=== PATIENT | female | born 1955 | race Caucasian/White ===

== ENCOUNTER 2018-08-09 00:42 | Outpatient (CLI) | payer OTHER, SELFPAY ==
--- NOTE | 2018-08-09 14:00 | MERGE_ITS ---
*[facility]* *[facility]* [address] [place] [address] Date of study: 08/09/2018 Transthoracic Echocardiography M-mode, complete 2D, complete spectral Doppler, and color Doppler *STUDY CONCLUSIONS* Summary: 1. Left ventricle: The cavity size was normal. There was mild focal basal hypertrophy of the septum. Systolic function was normal. The estimated ejection fraction was 60-65%. Wall motion was normal; there were no regional wall motion abnormalities. 2. Mitral valve: Moderate diffuse thickening of the anterior leaflet and posterior leaflet, consistent with myxomatous proliferation. There was mild to moderate regurgitation. 3. Right ventricle: The cavity size was normal. Wall thickness was normal. Systolic function was normal. 4. Pulmonary arteries: Pulmonary systolic pressure was at the upper limits of normal. PA peak pressure: 33mm Hg (S). *PATIENT PRESENTATION* Height: 162.6cm ((64in) ) S/D Pressure: 126 / 76 Weight: 59.4kg ((130.7lb) ) BSA: 1.64m^2 Test start time: 02:06 PM. Test stop time: 03:00 PM. ORDERING Minda Ramirez REFERRING Minda Ramirez PERFORMING Unknown PERFORMING [facility] C[employer] SPREADER HELPER RT Gerson Valerio)(JENS)AIMEE *PROCEDURE DATA* Procedure information: The patient was identified by two identifiers. This study was interpreted by [facility]. Pertinent images and digital data are archived for permanent storage and are available for subsequent review. No prior study was available for comparison. Study status: Routine. Transthoracic echocardiography. M-mode, complete 2D, complete spectral Doppler, and color Doppler. A Transthoracic Echocardiogram was performed. Scanning was performed from the parasternal, apical, subcostal, and suprasternal notch acoustic windows. Images were obtained using an [id number] cardiac ultrasound machine. Image quality was adequate. Study completion: The patient tolerated the procedure well. History: PMH: Murmur. *CARDIAC ANATOMY* Left ventricle: The cavity size was normal. There was mild focal basal hypertrophy of the septum. Systolic function was normal. The estimated ejection fraction was 60-65%. Wall motion was normal; there were no regional wall motion abnormalities. Aortic valve: Trileaflet; mildly thickened leaflets. Mobility was not restricted. Doppler: Transvalvular velocity was within the normal range. There was no stenosis. There was no significant regurgitation. VTI ratio of LVOT to aortic valve: 0.7. Valve area (VTI): 2.1cm^2. Indexed valve area (VTI): 1.3cm^2/m^2. Peak velocity ratio of LVOT to aortic valve: 0.65. Valve area (Vmax): 1.9cm^2. Indexed valve area (Vmax): 1.2cm^2/m^2. Mean velocity ratio of LVOT to aortic valve: 0.69. Valve area (Vmean): 2cm^2. Indexed valve area (Vmean): 1.2cm^2/m^2. Mean gradient (S): 4.5mm Hg. Peak gradient (S): 7.8mm Hg. Aorta: Aortic root: The aortic root was normal in size. Ascending aorta: The ascending aorta was normal in size. Mitral valve: Moderate diffuse thickening of the anterior leaflet and posterior leaflet, consistent with myxomatous proliferation. Mobility was not restricted. Doppler: Transvalvular velocity was within the normal range. There was no evidence for stenosis. There was mild to moderate regurgitation. Valve area by pressure half-time: 4.1cm^2. Indexed valve area by pressure half-time: 2.5cm^2/m^2. Peak gradient (D): 4.4mm Hg. Left atrium: The atrium was normal in size. Right ventricle: The cavity size was normal. Wall thickness was normal. Systolic function was normal. Pulmonic valve: Poorly visualized. Doppler: Transvalvular velocity was within the normal range. There was no evidence for stenosis. There was no significant regurgitation. Peak gradient (S): 2.9mm Hg. Tricuspid valve: Mildly thickened leaflets. Doppler: Transvalvular velocity was within the normal range. There was no evidence for stenosis. There was trivial regurgitation. Pulmonary artery: Poorly visualized. Pulmonary systolic pressure was at the upper limits of normal. Right atrium: The atrium was normal in size. Pericardium: There was no pericardial effusion. Systemic veins: Inferior vena cava: Well visualized. The vessel was patent and normal in size. The respirophasic diameter changes were in the normal range (greater than or equal to 50%), consistent with normal central venous pressure. Baseline ECG: Normal sinus rhythm. Measurements Left ventricle Value Reference LV ID, ED, PLAX 4.1 cm 3.5 - 6.0 LV ID, ES, PLAX 2.6 cm 2.1 - 4.0 LV PW thickness, ED, PLAX 1.0 cm LV end-diastolic volume, 1-p A2C 62 ml LV ejection fraction, 1-p A2C 64 % LV end-diastolic volume, 1-p A4C 58 ml LV ejection fraction, 1-p A4C 62 % LV e', lateral 0.122 m/sec LV E/e', lateral 9 LV e', medial 0.121 m/sec LV E/e', medial 9 LV e', average 0.122 m/sec LV E/e', average 9 Ventricular septum Value Reference IVS thickness, ED, PLAX 0.9 cm LVOT Value Reference LVOT ID, A-P 1.9 cm LVOT area 3 cm^2 LVOT peak velocity, S 0.91 m/sec LVOT mean velocity, S 0.7 m/sec LVOT VTI, S 22.4 cm LVOT peak gradient, S 3.3 mm Hg LVOT mean gradient, S 2.1 mm Hg Stroke volume (SV), LVOT DP 67 ml Stroke index (SV/bsa), LVOT DP 41 ml/m^2 Aortic valve Value Reference Aortic valve peak velocity, S 1.4 m/sec Aortic valve mean velocity, S 1.02 m/sec Aortic valve VTI, S 32.0 cm Aortic mean gradient, S 4.5 mm Hg Aortic peak gradient, S 7.8 mm Hg VTI ratio, LVOT/AV 0.7 Aortic valve area, VTI 2.1 cm^2 Velocity ratio, peak, LVOT/AV 0.65 Aortic valve area, peak velocity 1.9 cm^2 Velocity ratio, mean, LVOT/AV 0.69 Aortic valve area, mean velocity 2 cm^2 Aortic valve area/bsa, mean velocity 1.2 cm^2/m^2 Aorta Value Reference Aortic root ID, ED 2.8 cm Ascending aorta ID, A-P, S 2.6 cm RVOT Value Reference RVOT VTI, S 17.1 cm Left atrium Value Reference LA ID, A-P, ES 2.6 cm LA ID/bsa, A-P 1.6 cm/m^2 <=2.2 LA area, ES, A4C 14.9 cm^2 8.8 - 23.4 LA area, ES, A2C 15 cm^2 LA volume/bsa, ES, 1-p A4C 25 ml/m^2 LA volume, ES, 2-p 36 ml LA volume/bsa, ES, 2-p 22 ml/m^2 LA/aortic root ratio 0.93 Mitral valve Value Reference Mitral E-wave peak velocity 1.05 m/sec Mitral A-wave peak velocity 0.57 m/sec Mitral deceleration time 187 ms 150 - 230 Mitral pressure half-time 54 ms Mitral peak gradient, D 4.4 mm Hg Mitral E/A ratio, peak 1.83 Mitral valve area, PHT, DP 4.1 cm^2 Pulmonary veins Value Reference Pulmonary vein peak velocity, S 0.66 m/sec Pulmonary vein peak velocity, D 0.68 m/sec Pulmonary vein velocity ratio, peak, 0.98 S/D Pulmonary vein A-wave reversal peak 0.38 m/sec velocity Pulmonary arteries Value Reference PA pressure, S, DP (H) 33 mm Hg <=30 Tricuspid valve Value Reference Tricuspid regurg peak velocity 2.6 m/sec Tricuspid peak RV-RA gradient 26.4 mm Hg Right atrium Value Reference RA area, ES, A4C 15.2 cm^2 8.3 - 19.5 Systemic veins Value Reference Estimated CVP 10 mm Hg Right ventricle Value Reference RV pressure, S, DP (H) 36 mm Hg <=30 Pulmonic valve Value Reference Pulmonic peak gradient, S 2.9 mm Hg Legend: (L) and (H) harrison values outside specified reference range. I have personally reviewed the images and have reviewed and edited the reported findings. Electronically signed by Ronnell Corbin 08/11/2018 12:23
== END 2018-08-09 01:02 ==
PROVIDERS: PCP Family Medicine; Visit Provider Family Medicine
DX: R01.1 Cardiac murmur, unspecified (principal); I34.0 Nonrheumatic mitral (valve) insufficiency
CPT/HCPCS: 93306

== ENCOUNTER 2019-01-16 10:48 | Emergency (ER) | payer OTHER, SELFPAY ==
[2019-01-16 10:54] VITALS: BP 165/84; PULSE 92; RESP 18; TEMP 37.2; O2SAT 98
--- NOTE | 2019-01-16 11:14 | W.ED.GENAD ---
Discharge Plan Disposition Patient Disposition: HOME Condition: Stable Discharge Details Chief Complaint: GenMedical Clinical Impression: Change in vision Primary Care Provider: Minda Ramirez ED Provider: Morgan Jones Discharge Instructions Additional Instructions: Please go immediately to Dr. Mejia's office, and have a friend drive you. They are waiting for you at their office. If you notice any worsening of your symptoms, or any new symptoms such as vomiting, diarrhea, fever, chills, shortness of breath, chest pain, numbness, weakness, or fainting , please return immediately to the emergency department for reevaluation. Please follow up with your primary care provider as soon as possible for reassessment and reevaluation. As always, it was a pleasure participating in your medical care today. Referrals: [facility] [OTHER] - Medical Decision Making This is a 63-year-old female who presents with acute blurry vision. She also complained of a very mild headache that occurred roughly 1-2 hours ago. At the time of arrival in the ED her symptoms had resolved. Her eye pain had improved, her headache is gone away, physical exam shows no clinical evidence of meningitis, she has no neurologic deficits, and a benign neurologic exam. [place] demonstrated a pressure of 23 on the right eye and 24 on the left. However visual acuity demonstrated 25 on the left, and 100 on the right. No other significant abnormalities on exam. With no neurologic deficits, no signs of nuchal rigidity do not think that there is an immediate indication for CT imaging of the head neuroimaging at this time, however I am concerned with her glaucoma and her sudden vision change in the right with the residual vision of 100 on the right eye. Patient's vital signs are otherwise stable and reassuring. I have recommended close follow-up with her primary care provider Dr. Shaw, but with her vision change in her worsening vision on the right I do feel that prompt follow-up with Dr. Mejia is indicated at this time. For prompt follow-up. We will contact his office. I spoke with Dr. Mejia is clinical colleague, they recommend that the patient come right over for evaluation. We will send the patient directly to his office. I have extensively reviewed the treatment plan and discharge instructions with the patient. I have addressed all patient concerns at this time. The patient was made aware of what symptoms to monitor for that would warrant a return to the emergency department. Discussed the plan with the patient, they demonstrate verbal understanding and agreement with our assessment and plan at this time. HPI General Date/Time Provider Initiated Documentation: 01/16/19 10:48. HPI Narrative: This is a 63-year-old female with a past medical history of borderline glaucoma, who presents today for evaluation of very mild headache and minimal right eye blurriness that occurred roughly 2 days ago. She does admit to mild fatigue over the last 2 days, but denies any fever, chills, cough, chest pain, neck pain, shortness of breath, nausea, vomiting, diarrhea. States that her symptoms today occurred while she was sitting and working at her desk at work. Symptoms were brief, and have resolved by the time she arrived here. She last saw Dr. Mejia 1 month ago for evaluation of her glaucoma and they were still holding off on meds at that time. Currently the patient states that her headache has resolved, vision changes there is resolved, and she has no other complaints. No other modifying factors at this. No recent surgeries. Related Data Allergies Allergy/AdvReac Type Severity Reaction Status Date / Time mushroom Allergy Intermediate heart Unverified 01/16/19 10:59 palpatations, nightmares venom-honey bee Allergy Intermediate swelling Unverified 01/16/19 10:59 Sulfa (Sulfonamide Allergy Unknown Unverified 01/16/19 10:59 Antibiotics) General Stated Complaint: GenMedical LAURIE: 3 Review of Systems Review of Systems All systems reviewed & are unremarkable except as noted in HPI and below PFSH Medical History Cardiac murmur (Acute) Change in multiple pigmented skin lesions (Acute) Primary osteoarthritis of left hip (Chronic) Malignant neoplasm of female breast (Chronic 05/28/07) Irritable colon (Chronic) Insomnia (Chronic) Idiopathic scoliosis (Chronic) Hypercholesterolemia (Chronic 02/17/13) History of tobacco use (Chronic) Diverticulosis (Chronic) Acute glomerulonephritis (Resolved) Atypical mole (Resolved 03/14/16) Surgical History S/P laparoscopic hysterectomy (Resolved) Biopsy of breast (~2006) Colonoscopy - IV Sedation (05/03/12) Hysterectomy, Laproscopic (~1989) Total replacement of hip Family History Mother Essential hypertension Father Essential hypertension Heart disease Hyperlipidemia Myocardial infarction Sister Alzheimer's disease Hyperlipidemia Stroke Brother Heart disease Sister MS (multiple sclerosis) Daughter No problems noted. Daughter No problems noted. 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 Eye: EOMI, PERRL, Peripheral vision intact. No nystagmus. Fundoscopic exam shows normal optic discs and normal vasculature. No external signs of preseptal cellulitis, no redness around the eye, no proptosis. No hyphema, no signs of trauma around the eye, no periorbital emphysema. Visual acuity as documented in chart. Both eyes was 25, right eye was 100, left eye was 25. 3.ENT: Atraumatic external nose and ears. Moist MM. Neck: Symmetric, trachea midline, No thyromegaly. Patient demonstrates good movement of cervical neck. There is no nuchal rigidity, no nuchal tenderness. Patient is able to flex the neck without any difficulty or significant pain. Negative Kernig's and Brudzinski sign. 4.CVS: +S1/S2, No murmurs or gallops. Peripheral pulses 2+ and equal in all extremities. Brisk capillary refill in all extremities. 5.RESP: Unlabored respiratory effort. Clear to auscultation bilaterally. No wheezes rales or rhonchi 6.GI: Soft, Nontender/Nondistended, No hepatosplenomegaly. No guarding or rebound. 7.MSK: Normocephalic/Atraumatic, Extremities w/o deformity or ttp No cyanosis or clubbing, Normal movement of all extremities 8.Skin: Warm, Dry. No rashes or lesions. 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 Sensation grossly intact, no focal neurologic deficits. All 6 cardinal planes of vision are fully intact. No evidence of rotatory or vertical nystagmus. The patient demonstrated a normal tanlhv-yohx-vjadth, good dexterity. There was no evidence of dysdiadochokinesia. Patient was able to ambulate without difficulty. There was no wide-based gait. Romberg, and kldo-jr-aqgi are both normal on testing. Sensation was intact bilaterally as well as muscle strength bilaterally for all extremities. Patient was able to verbalize butter cup with no slurring, or miss pronunciation. 10.Psych: (AAO) x3. Appropriate mood and affect Course Vital Signs Temperature 37.2 C 01/16/19 10:54 Pulse 92 H 01/16/19 10:54 Respiratory Rate 18 01/16/19 10:54 Blood Pressure 165/84 H 01/16/19 10:54 Pulse Oximetry 98 01/16/19 10:54 Temperature 37.2 C 01/16/19 10:54 Temperature Source Skin 01/16/19 10:54 Pulse 92 H 01/16/19 10:54 Respiratory Rate 18 01/16/19 10:54 Blood Pressure 165/84 H 01/16/19 10:54 Pulse Oximetry 98 01/16/19 10:54 Oxygen Delivery Method Room Air 01/16/19 10:54 Oxygen Flow Rate 0 01/16/19 10:54 Pain Level 0 01/16/19 10:54
--- NOTE | 2019-01-16 11:25 | ED.GENADUL_ITS ---
Discharge Plan Disposition Patient Disposition: HOME Condition: Stable Discharge Details Chief Complaint: GenMedical Clinical Impression: Change in vision Primary Care Provider: Minda Ramirez ED Provider: Morgan Jones Discharge Instructions Additional Instructions: Please go immediately to Dr. Mejia's office, and have a friend drive you. They are waiting for you at their office. If you notice any worsening of your symptoms, or any new symptoms such as vomiting, diarrhea, fever, chills, shortness of breath, chest pain, numbness, weakness, or fainting , please return immediately to the emergency department for reevaluation. Please follow up with your primary care provider as soon as possible for reassessment and reevaluation. As always, it was a pleasure participating in your medical care today. Referrals: [facility] [OTHER] - Medical Decision Making This is a 63-year-old female who presents with acute blurry vision. She also complained of a very mild headache that occurred roughly 1-2 hours ago. At the time of arrival in the ED her symptoms had resolved. Her eye pain had improved, her headache is gone away, physical exam shows no clinical evidence of meningitis, she has no neurologic deficits, and a benign neurologic exam. [place] demonstrated a pressure of 23 on the right eye and 24 on the left. However visual acuity demonstrated 25 on the left, and 100 on the right. No other significant abnormalities on exam. With no neurologic deficits, no signs of nuchal rigidity do not think that there is an immediate indication for CT imaging of the head neuroimaging at this time, however I am concerned with her glaucoma and her sudden vision change in the right with the residual vision of 100 on the right eye. Patient's vital signs are otherwise stable and reassuring. I have recommended close follow-up with her primary care provider Dr. Shaw, but with her vision change in her worsening vision on the right I do feel that prompt follow-up with Dr. Mejia is indicated at this time. For prompt follow-up. We will contact his office. I spoke with Dr. Mejia is clinical colleague, they recommend that the patient come right over for evaluation. We will send the patient directly to his office. I have extensively reviewed the treatment plan and discharge instructions with the patient. I have addressed all patient concerns at this yemi e. The patient was made aware of what symptoms to monitor for that would warrant a return to the emergency department. Discussed the plan with the patient, they demonstrate verbal understanding and agreement with our assessment and plan at this time. HPI General Date/Time Provider Initiated Documentation: 01/16/19 10:48 . HPI Narrative: This is a 63-year-old female with a past medical history of borderline glaucoma, who presents today for evaluation of very mild headache and minimal right eye blurriness that occurred roughly 2 days ago. She does admit to mild fatigue over the last 2 days, but denies any fever, chills, cough, chest pain, neck pain, shortness of breath, nausea, vomiting, diarrhea. States that her symptoms today occurred while she was sitting and working at her desk at work. Symptoms were brief, and have resolved by the time she arrived here. She last saw Dr. Mejia 1 month ago for evaluation of her glaucoma and they were still holding off on meds at that time. Currently the patient states that her headache has resolved, vision changes there is resolved, and she has no other complaints. No other modifying factors at this. No recent surgeries. Related Data Allergies Allergy/AdvReac Type Severity Reaction Status Date / Time mushroom Allergy Intermediate heart Unverified 01/16/19 10:59 palpatations, nightmares venom-honey bee Allergy Intermediate swelling Unverified 01/16/19 10:59 Sulfa (Sulfonamide Allergy Unknown Unverified 01/16/19 10:59 Antibiotics) General Stated Complaint: GenMedical LAURIE: 3 Review of Systems Review of Systems All systems reviewed & are unremarkable except as noted in HPI and below PFSH Medical History Cardiac murmur (Acute) Change in multiple pigmented skin lesions (Acute) Primary osteoarthritis of left hip (Chronic) Malignant neoplasm of female breast (Chronic 05/28/07) Irritable colon (Chronic) Insomnia (Chronic) Idiopathic scoliosis (Chronic) Hypercholesterolemia (Chronic 02/17/13) History of tobacco use (Chronic) Diverticulosis (Chronic) Acute glomerulonephritis (Resolved) Atypical mole (Resolved 03/14/16) Surgical History S/P laparoscopic hysterectomy (Resolved) Biopsy of breast (~2006) Colonoscopy - IV Sedation (05/03/12) Hysterectomy, Laproscopic (~1989) Total replacement of hip Family History Mother Essential hypertension Father Essential hypertension Heart disease Hyperlipidemia Myocardial infarction Sister Alzheimer's disease Hyperlipidemia Stroke Brother Heart disease Sister MS (multiple sclerosis) Daughter No problems noted. Daughter No problems noted. 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 Eye: EOMI, PERRL, Peripheral vision intact. No nystagmus. Fundoscopic exam shows normal optic discs and normal vasculature. No external signs of preseptal cellulitis, no redness around the eye, no proptosis. No hyphema, no signs of trauma around the eye, no periorbital emphysema. Visual acuity as documented in chart. Both eyes was 25, right eye was 100, left eye was 25. 3.ENT: Atraumatic external nose and ears. Moist MM. Neck: Symmetric, trachea midline, No thyromegaly. Patient demonstrates good movement of cervical neck. There is no nuchal rigidity, no nuchal tenderness. Patient is able to flex the neck without any difficulty or significant pain. Negative Kernig's and Brudzinski sign. 4.CVS: +S1/S2, No murmurs or gallops. Peripheral pulses 2+ and equal in all extremities. Brisk capillary refill in all extremities. 5.RESP: Unlabored respiratory effort. Clear to auscultation bilaterally. No wheezes rales or rhonchi 6.GI: Soft, Nontender/Nondistended, No hepatosplenomegaly. No guarding or rebound. 7.MSK: Normocephalic/Atraumatic, Extremities w/o deformity or ttp No cyanosis or clubbing, Normal movement of all extremities 8.Skin: Warm, Dry. No rashes or lesions. 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 Sensation grossly intact, no focal neurologic deficits. All 6 cardinal planes of vision are fully intact. No evidence of rotatory or vertical nystagmus. The patient demonstrated a normal bnhtsw-alko-xrnfko, good dexterity. There was no evidence of dysdiadochokinesia. Patient was able to ambulate without difficulty. There was no wide-based gait. Romberg, and wqbg-nt-tylo are both normal on testing. Sensation was intact bilaterally as well as muscle strength bilaterally for all extremities. Patient was able to verbalize butter cup with no slurring, or miss pronunciation. 10.Psych: (AAO) x3. Appropriate mood and affect Course Vital Signs Temperature 37.2 C 01/16/19 10:54 Pulse 92 H 01/16/19 10:54 Respiratory Rate 18 01/16/19 10:54 Blood Pressure 165/84 H 01/16/19 10:54 Pulse Oximetry 98 01/16/19 10:54 Temperature 37.2 C 01/16/19 10:54 Temperature Source Skin 01/16/19 10:54 Pulse 92 H 01/16/19 10:54 Respiratory Rate 18 01/16/19 10:54 Blood Pressure 165/84 H 01/16/19 10:54 Pulse Oximetry 98 01/16/19 10:54 Oxygen Delivery Method Room Air 01/16/19 10:54 Oxygen Flow Rate 0 01/16/19 10:54 Pain Level 0 01/16/19 10:54
[2019-01-16 11:32] VITALS: BP 165/84; PULSE 92; RESP 18; TEMP 37.2; O2SAT 98
== END 2019-01-16 11:50 | disposition home or self-care (01) ==
PROVIDERS: Emergency Provider Student in an Organized Health Care Education/Training Program; PCP Family Medicine
DX: H53.10 Unspecified subjective visual disturbances (principal)
CPT/HCPCS: 99283

== ENCOUNTER 2019-01-17 01:40 | Outpatient (CLI) | payer OTHER, SELFPAY ==
[2019-01-17 11:09] LABS: Abs Immature Grans 0.01 k/cumm (0.0-0.09); Absolute Basophil Count 0.02 k/cumm (0.0-0.2); Absolute Eosinophil Count 0.08 k/cumm (0.0-0.7); Absolute Lymphocyte Count 1.02 k/cumm (1.2-3.4); Absolute Monocyte Count 0.37 k/cumm (0.11-0.7); Absolute Neutrophil Count 3.23 k/cumm (1.2-6.7); Basophils % 0.4; Eosinophils % 1.7; HCT 42.5 % (36.0-46.0); HGB 13.6 g/dL (12.0-15.5); Immature Grans % 0.2; Lymphocytes % 21.6; Mean Corpuscular Hemoglobin 30.4 pg (27.0-33.0); Mean Corpuscular Volume 95.1 fL (80-95); Mean Platelet Volume 10.1 fL (8.0-11.0); Monocytes % 7.8; Neutrophils % 68.3; Platelet Count 251 x1000/uL (130-400); RBC 4.47 m/cumm (4.00-5.20); RBC Distribution Width 12.9 % (11.7-14.6); White Blood Cell Count 4.73 k/cumm (4.4-10.8)
[2019-01-17 11:23] LABS: ALT 28 U/L (12-78); AST 17 U/L (15-37); Albumin 3.9 g/dL (3.4-5.0); Alkaline Phosphatase 73 U/L (46-116); Anion Gap 4.7 mmol/L (3-11); BUN 19 mg/dL (7-18); Bilirubin, Total 0.4 mg/dL (0.2-1.0); CO2 33.3 mmol/L (21.0-32.0); CREATININE 0.75 mg/dL (0.55-1.02); Calcium 9.4 mg/dL (8.5-10.1); Chloride 105 mmol/L (98-107); Cholesterol 259 mg/dL (50-200); Glucose 66 mg/dL (70-100); HDL Cholesterol 66 mg/dL (40-60); LDL CHOLESTEROL 163 mg/dL (<100); Potassium 4.8 mmol/L (3.5-5.1); Sodium 143 mmol/L (136-145); TSH (W/Ref FT4) 0.89 uIU/mL (0.358-3.74); Total Protein 6.7 g/dL (6.4-8.2); Triglyceride 159 mg/dL (30-150)
[2019-01-17 12:45] LABS: ESR 18 MM/HR (0-30)
== END 2019-01-17 02:00 ==
PROVIDERS: PCP Family Medicine; Visit Provider Family Medicine
DX: E78.00 Pure hypercholesterolemia, unspecified (principal); R01.1 Cardiac murmur, unspecified; G47.00 Insomnia, unspecified; H53.8 Other visual disturbances
CPT/HCPCS: 36415; 80053; 80061; 83721; 85652; 84443; 85025

== ENCOUNTER 2019-01-28 15:00 | Outpatient (CLI) | payer OTHER, SELFPAY ==
--- NOTE | 2019-01-28 13:01 | DI.US_ITS ---
SYMPTOMS/DIAGNOSIS: BLURRING OF VISION, H53.8 CAROTID ULTRASOUND: Minimal plaque formation is noted in the carotids. There is bilateral antegrade flow in the vertebrals. There is no evidence of significant right or left carotid stenosis.
== END 2019-01-28 15:20 ==
PROVIDERS: PCP Family Medicine; Visit Provider Family Medicine
DX: H53.8 Other visual disturbances (principal)
CPT/HCPCS: 93880